=== PATIENT | female | born 1935 | race African-American/Black ===

== ENCOUNTER 2017-09-19 20:27 | Emergency (ER) | payer MEDICARE ==
[~2017-09-19] VITALS: Ht 157.5 cm; Wt 68.0 kg
[2017-09-19 20:30] VITALS: BP 220/104; PULSE 84; RESP 16; O2SAT 100
[2017-09-19] MEDS ORDERED: HYDR12.57 PO (20:50)
[2017-09-19] MEDS ORDERED: LISI-519 PO (20:50)
[2017-09-19] MEDS ORDERED: METO25TA3 PO (20:50)
[2017-09-19] MEDS ORDERED: NAME10TA PO (20:50)
[2017-09-19] MEDS ORDERED: ATOR40TA16 PO (20:50)
[2017-09-19] MEDS ORDERED: ASPI-516 CHEW (20:50)
[2017-09-19] MEDS ORDERED: LABETALOL HCL 100 MG/20 ML VIAL IV PUSH ONE (21:00)
--- NOTE | 2017-09-19 21:02 | PD ---
HPI Chief Complaint: Hypertension Time Seen by Provider: 20:54 Travel History International Travel<30 days: No Contact w/Intl Traveler<30days: No Traveled to known affect area: No History of Present Illness HPI This is an 81-year-old female with history of hypertension, Alzheimer's dementia , coronary disease, presents with her daughter for evaluation of hypertension. The patient is currently enrolled in a Alzheimer's study in [facility]. She reports that yesterday she had an appointment for follow-up with the physician at the old some her study when her blood pressure was noted to be 220s over 100. She was sent to an emergency room in [place] where her blood pressure was brought into a reasonable range she was sent home. Today she drove into town to visit family when her daughter checked her blood pressure and it was 215/ 100. The patient currently is feeling well. She reports that she has slight dizziness which is not unusual. She denies headache, blurred vision, chest pain , shortness of breath, abdominal pain, nausea, vomiting. Denies any recent illness. Her daughter reports that typically her blood pressure has been under control in the past, she reports that usually it is around 120/80. Currently she is on a blood pressure regimen including metoprolol 25 mg bid, lisinopril 5 mg once a day, hydrochlorothiazide 12.5 mg Wednesdays and Fridays. She has an appointment with her primary care physician in [place] in 2 days. She has no other complaints at this time. PFSH Past Medical History Hx Anticoagulant Therapy: Yes (ASA) Cardiovascular Problems: Yes (HTN, TRIPLE CABG) Cerebrovascular Accident: Yes Dementia: Yes Gastrointestinal Disorders: Yes (colostomy and reversal ) Hypertension: Yes Past Surgical History Hysterectomy: Yes Social History Alcohol Use: Yes (occasionaly) Tobacco Use: No Allergies-Medications (Allergen,Severity, Reaction): Coded Allergies: No Known Allergies (Unverified , 09/19/17) Reported Meds & Prescriptions Reported Meds & Active Scripts Active Reported Namenda (Memantine) 10 Mg Tab 28 Mg PO DAILY Atorvastatin (Atorvastatin Calcium) 40 Mg Tab 40 Mg PO HS Aspirin 81 Mg Chew 81 Mg CHEW DAILY Hydrochlorothiazide 12.5 Mg Cap 12.5 Mg PO DAILY Lisinopril 5 Mg Tab 5 Mg PO DAILY Metoprolol Tartrate 25 Mg Tab 25 Mg PO BID Review of Systems Except as stated in HPI: all other systems reviewed are Neg Physical Exam Narrative GENERAL: Well-developed well-nourished female in no acute distress SKIN: Warm and dry. HEAD: Atraumatic. Normocephalic. EYES: Pupils equal and round. No scleral icterus. No injection or drainage. ENT: No nasal bleeding or discharge. Mucous membranes pink and moist. NECK: Trachea midline. No JVD. CARDIOVASCULAR: Regular rate and rhythm. No murmur appreciated. RESPIRATORY: No accessory muscle use. Clear to auscultation. Breath sounds equal bilaterally. GASTROINTESTINAL: Abdomen soft, non-tender, nondistended. Hepatic and splenic margins not palpable. MUSCULOSKELETAL: No obvious deformities. No clubbing. No cyanosis. No edema. NEUROLOGICAL: Awake and alert. No obvious cranial nerve deficits. Motor grossly within normal limits. Normal speech. PSYCHIATRIC: Appropriate mood and affect; insight and judgment normal. Data Data Last Documented VS Vital Signs Date Time Temp Pulse Resp B/P (MAP) Pulse Ox O2 Delivery O2 Flow Rate FiO2 09/19/17 21:35 79 18 168/72 (104) 100 09/19/17 20:30 Room Air Orders Orders Electrocardiogram (09/19/17 ) Complete Blood Count With Diff (09/19/17 20:55) Basic Metabolic Panel (Bmp) (09/19/17 20:55) Labetalol Inj (Trandate Inj) (09/19/17 21:00) Amlodipine (Norvasc) (09/19/17 22:00) Ed Discharge Order (09/19/17 21:46) Labs Laboratory Tests Test 09/19/17 21:10 White Blood Count 7.6 TH/MM3 Red Blood Count 4.25 MIL/MM3 Hemoglobin 13.2 GM/DL Hematocrit 38.1 % Mean Corpuscular Volume 89.7 FL Mean Corpuscular Hemoglobin 31.2 PG Mean Corpuscular Hemoglobin Concent 34.8 % Red Cell Distribution Width 14.2 % Platelet Count 158 TH/MM3 Mean Platelet Volume 9.8 FL Neutrophils (%) (Auto) 74.4 % Lymphocytes (%) (Auto) 14.2 % Monocytes (%) (Auto) 9.4 % Eosinophils (%) (Auto) 1.5 % Basophils (%) (Auto) 0.5 % Neutrophils # (Auto) 5.6 TH/MM3 Lymphocytes # (Auto) 1.1 TH/MM3 Monocytes # (Auto) 0.7 TH/MM3 Eosinophils # (Auto) 0.1 TH/MM3 Basophils # (Auto) 0.0 TH/MM3 CBC Comment DIFF FINAL Differential Comment Blood Urea Nitrogen 19 MG/DL Creatinine 1.00 MG/DL Random Glucose 96 MG/DL Calcium Level 8.8 MG/DL Sodium Level 143 MEQ/L Potassium Level 3.7 MEQ/L Chloride Level 110 MEQ/L Carbon Dioxide Level 25.0 MEQ/L Anion Gap 8 MEQ/L Estimat Glomerular Filtration Rate 53 ML/MIN MDM Medical Decision Making Medical Screen Exam Complete: Yes Emergency Medical Condition: Yes Medical Record Reviewed: Yes Differential Diagnosis Hypertensive urgency, hypertensive emergency, essential hypertension Narrative Course The patient appears well. Plan is for basic lab work, EKG. She will be given a dose of IV labetalol for her hypertension. Patient's blood work is unremarkable. Blood pressure improved with the administration of labetalol, still somewhat elevated, single dose of amlodipine was administered prior to discharge. The patient has been encouraged to double her dose of lisinopril from 5 mg to 10 mg daily, Hytrin thighs ideally incentive 3 times a week, follow-up with primary care physician in 2 days as scheduled. Family is agreeable to this plan. Stable for discharge. Diagnosis Primary Impression: Hypertension Additional Instructions: Metoprolol 25 mg twice a day as scheduled. Hydrochlorothiazide 12.5 mg daily. Lisinopril 10 mg daily Monitor blood pressure on a regular basis and keep a journal of the readings. Follow-up with primary care physician as scheduled. Return for any emergent medical conditions. Med/Other Pt SpecificInfo: No Change to Meds Disposition: 01 DISCHARGE HOME Condition: Stable Reynaldo Walter Sep 19, 2017 21:02
[2017-09-19 21:05] VITALS: BP 241/102
[2017-09-19 21:19] LABS: AUTOMATED NEUTROPHIL # 5.6 TH/MM3 (1.8-7.7); BASOPHIL % 0.5 % (0.0-2.0); EOSINOPHIL # 0.1 TH/MM3 (0-0.4); EOSINOPHIL % 1.5 % (0.0-4.0); HEMATOCRIT 38.1 % (35.0-46.0); HEMOGLOBIN 13.2 GM/DL (11.6-15.3); LYMPH % 14.2 % (9.0-44.0); LYMPHOCYTE # 1.1 TH/MM3 (1.0-4.8); MEAN CELL VOLUME 89.7 FL (80.0-100.0); MEAN CORPUSCULAR HEMOGLOBIN 31.2 PG (27.0-34.0); MEAN CORPUSCULAR HGB CONC 34.8 % (32.0-36.0); MEAN PLATELET VOLUME 9.8 FL (7.0-11.0); MONO % 9.4 % (0.0-8.0); MONOCYTE # 0.7 TH/MM3 (0-0.9); NEUT % 74.4 % (16.0-70.0); PLATELET COUNT 158 TH/MM3 (150-450); RED BLOOD COUNT 4.25 MIL/MM3 (4.00-5.30); RED CELL DISTRIBUTION WIDTH 14.2 % (11.6-17.2); WHITE BLOOD COUNT 7.6 TH/MM3 (4.0-11.0)
[2017-09-19 21:35] VITALS: BP 168/72; PULSE 79; RESP 18; O2SAT 100
[2017-09-19 21:35] LABS: CALCIUM 8.8 MG/DL (8.5-10.1)
[2017-09-19] MEDS ORDERED: amLODIPine BESYLATE 5 MG TAB PO ONE (22:00)
--- NOTE | 2017-09-20 12:50 | EKG ---
Date Performed: 09/19/2017 Time Performed: 21:16:01 PTAGE: 81 years EKG: Sinus rhythm INCOMPLETE RIGHT BUNDLE BRANCH BLOCK SEPTAL MYOCARDIAL INFARCTION Nonspecific T-wave changes ABNORMA L ECG NO PREVIOUS TRACING DOCTOR: Latrell Menjivar Interpretating Date/Time 09/20/2017 12:49:19
== END 2017-09-19 22:44 | disposition home or self-care (01) ==
LOC: NEPE 20:27
DX: I10 Essential (primary) hypertension (principal); R42 Dizziness and giddiness; I45.10 Unspecified right bundle-branch block; R94.31 Abnormal electrocardiogram [ECG] [EKG]; I25.2 Old myocardial infarction; G30.9 Alzheimer's disease, unspecified; F02.80 Dementia in other diseases classified elsewhere, unspecified severity, without behavioral disturbance, psychotic disturbance, mood disturbance, and anxiety; Z86.73 Personal history of transient ischemic attack (TIA), and cerebral infarction without residual deficits; Z79.82 Long term (current) use of aspirin
CPT/HCPCS: 80048; 85025; 93005; 96374